=== PATIENT | female | born 2000 | race Two or more races ===

== ENCOUNTER 2023-01-09 15:15 | Emergency (ER) | payer MEDICAID ==
[~2023-01-09] VITALS: Ht 167.6 cm; Wt 68.2 kg
[2023-01-09 17:30] VITALS: BP 125/74
[2023-01-09] MEDS ORDERED: LIDOCAINE 5% TRANSDERMAL PATCH TD ONE (17:30)
[2023-01-09] MEDS ORDERED: BACLOFEN 10 MG TABLET PO ONE (17:30)
[2023-01-09] MEDS ORDERED: KETOROLAC TROMETHAMINE 30 MG/ML VIAL IM ONE (17:30)
[2023-01-09] MEDS ORDERED: BACL10TA PO (18:46)
[2023-01-09] MEDS ORDERED: LIDO700A15 TP (18:46)
[2023-01-09] MEDS ORDERED: IBUP-1492 PO (18:47)
== END 2023-01-09 18:59 | disposition home or self-care (01) ==
LOC: EMS 15:19
DX: M54.9 Dorsalgia, unspecified (principal); M25.512 Pain in left shoulder; F17.210 Nicotine dependence, cigarettes, uncomplicated
CPT/HCPCS: 99283; 71046; 96372; J1885